=== PATIENT | male | born 1945 | race Caucasian/White ===

== ENCOUNTER → 2018-05-15 | Outpatient (CLI) | payer OTHER | LOC: BMCIMAGING 08:21 | PROVIDERS: ATTEND Orthopaedic Surgery | PROC: BQ101ZZ Fluoroscopy of Right Hip using Low Osmolar Contrast (ICD-10-PCS; principal; 2018-05-15) | DX: M25.551 Pain in right hip (principal) ==

== ENCOUNTER → 2018-11-26 | Outpatient (CLI) | payer OTHER ==
[~2018-11-26] MED LIST: IOPAMIDOL (ISOVUE 370) 100 ML BTL IV ONE; IOPAMIDOL (ISOVUE-300) 200 ML BTL ONE
== END ==
LOC: FIMAGING 10:42
PROVIDERS: ATTEND Urology
DX: N32.89 Other specified disorders of bladder (principal); N40.0 Benign prostatic hyperplasia without lower urinary tract symptoms; M89.9 Disorder of bone, unspecified
CPT/HCPCS: 74178; Q9967; 82565-PO

== ENCOUNTER 2019-01-10 10:51 | Day surgery (SDC) | payer OTHER ==
[~2019-01-10 10:51] MED LIST changes: -IOPAMIDOL (ISOVUE 370) 100 ML BTL IV ONE; -IOPAMIDOL (ISOVUE-300) 200 ML BTL ONE; +ceFAZolin 2 GM/DEXTROSE 100 ML IV ONE
[2019-01-10] MEDS ORDERED: OPIUM/BELLADONNA ALKALO SUPP PR PRN ×2 (11:08)
[2019-01-10] MEDS ORDERED: LIDOCAINE 1% 2 ML INJ ID PRN (11:10)
[2019-01-10] MEDS ORDERED: LR 1,000 ML IV ONE (11:10)
--- NOTE | 2019-01-10 11:35 | PDANEPAE ---
ANE History of Present Illness here for TURB ANE Past Medical History - Cardiovascular History Hx Hypertension: No Hx Arrhythmias: No Hx Chest Pain: No Hx Coronary Artery / Peripheral Vascular Disease: No Hx CHF / Valvular Disease: No Hx Palpitations: No - Pulmonary History Hx COPD: No Hx Asthma/Reactive Airway Disease: No Hx Recent Upper Respiratory Infection: No Hx Oxygen in Use at Home: No Hx Sleep Apnea: Yes Sleep Apnea Screening Result - Last Documented: Positive Pulmonary History Comment: BLANCA uses CPAP - Neurologic History Hx Cerebrovascular Accident: No Hx Seizures: No Hx Dementia: No - Endocrine History Hx Diabetes: No - Renal History Hx Renal Disorders: No - Liver History Hx Hepatic Disorders: No - Neurological & Psychiatric Hx Hx Neurological and Psychiatric Disorders: No - Cancer History Hx Cancer: No - Congenital Disorder History Hx Congenital Disorders: No - GI History Hx Gastrointestinal Disorders: No - Other Health History Other Health History: none - Chronic Pain History Chronic Pain: No - Surgical History Prior Surgeries: none in last 5 yrs. 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 ANE Review of Systems Review of Systems: - Exercise capacity METS (RN): 5 METS ANE Patient History - Allergies Allergies/Adverse Reactions: No Known Allergies Allergy (Verified 12/31/18 10:34) - Home Medications Home Medications: Aspirin 81mg (*) 12/31/18 [Last Taken Unknown] Cholecalciferol (Vitamin D3) 12/31/18 [Last Taken Unknown] Coq-10 12/31/18 [Last Taken Unknown] Zinc 12/31/18 [Last Taken Unknown] Zocor 12/31/18 [Last Taken Unknown] - NPO status NPO Status: no food or drink >8 hours - Anes Hx Anes Hx: no prior problems - Smoking Hx Smoking Status: Former smoker - Alcohol Use Alcohol Use: Occasionally - Family Anes Hx Family Anes Hx: none Family Hx Anesthesia Complications: none ANE Labs/Vital Signs - Vital Signs Vital Signs: reviewed preoperatively; see RN documention for details Height: 190.5 cm Weight: 99.79 kg ANE Physical Exam - Airway Neck exam: FROM Mallampati Score: Class 2 Mouth exam: normal dental/mouth exam - Pulmonary Pulmonary: no respiratory distress, clear to auscultation - Cardiovascular Cardiovascular: regular rate and rhythym, no murmur, rub, or gallop - ASA Status ASA Status: II ANE Anesthesia Plan Anesthesia Plan: general endotracheal anesthesia
--- NOTE | 2019-01-10 11:39 | PDGENHP ---
History and Physical - Chief Complaint bladder tumor - History of Present Illness 73M underwent cysto in office for BPH, found to have bladder tumor. Here for TURBT. No blood in urine. No pain or fevers or chills. History Information - Allergies/Home Medication List Allergies/Adverse Reactions: No Known Allergies Allergy (Verified 12/31/18 10:34) Home Medications: Aspirin 81mg (*) 12/31/18 [Last Taken Unknown] Cholecalciferol (Vitamin D3) 12/31/18 [Last Taken Unknown] Coq-10 12/31/18 [Last Taken Unknown] Zinc 12/31/18 [Last Taken Unknown] Zocor 12/31/18 [Last Taken Unknown] I have personally reviewed and updated: family history, medical history, social history, surgical history - Social History Smoking Status: Former smoker Alcohol Use: Occasionally Review of Systems Review of Systems: ROS: 10pt was reviewed & negative except for what was stated in HPI & below Physical Exam Physical Exam: Constitutional: no apparent distress Eyes: anicteric sclera Ears, Nose, Mouth, Throat: moist mucous membranes Cardiovascular: regular rate and rhythym Respiratory: no respiratory distress Gastrointestinal: soft, non-tender abdomen Genitourinary: no bladder fullness Skin: warm Neurologic: AAOx3 Psychiatric: interacting appropriately Assessment & Plan Assessment: Bladder tumor Plan: TURBT. Jo juares.
[2019-01-10] MEDS ORDERED: LIDOCAINE 2% JELLY 20 ML (UROJECT) ONE (11:40)
[2019-01-10] MEDS ORDERED: CEFAZOLIN 2 GM/DEXTROSE/100 ML BAG IV ONE (11:55)
[2019-01-10] MEDS ORDERED: fentaNYL 100 MCG/2 ML INJ ONE (12:05)
[2019-01-10] MEDS ORDERED: ROCURONIUM 50 MG/5 ML VIAL ONE (12:06)
[2019-01-10] MEDS ORDERED: LIDOCAINE 2% 100 MG/5 ML SYR ONE (12:06)
[2019-01-10] MEDS ORDERED: PROPOFOL 200 MG/20 ML VIAL ONE (12:06)
[2019-01-10] MEDS ORDERED: OPIUM/BELLADONNA ALKALO SUPP PR ONE (12:32)
[2019-01-10] MEDS ORDERED: ACETAMINOPHEN 500 MG TAB PO PRN (13:14)
[2019-01-10] MEDS ORDERED: ONDANSETRON 4 MG/2 ML VIAL IVP PRN (13:14)
[2019-01-10] MEDS ORDERED: fentaNYL 100 MCG/2 ML INJ IVP PRN (13:14)
[2019-01-10] MEDS ORDERED: PROMETHAZINE HCL 25 MG/ML INJ IVP PRN (13:14)
[2019-01-10] MEDS ORDERED: HYDROCODONE/APAP 5/325 TAB PO PRN (13:14)
[2019-01-10] MEDS ORDERED: NALOXONE HCL 0.4 MG/ML INJ IVP PRN (13:14)
[2019-01-10] MEDS ORDERED: oxyCODONE IR 5 MG TAB PO PRN (13:14)
--- NOTE | 2019-01-10 13:16 | POSTANESTH ---
Post Anesthetic Evaluation Cardiovascular Status: Normal, Stable, Similar to Pre-Op Cond Respiratory Status: Normal, Stable, Similar to Pre-op Cond. Level of Consciousness/Mental Status: Can Participate in Eval, Alert and Oriented Pain Control: Adequate, Prn Tx Ordered Nausea/Vomiting Control: Adequate, Prn Tx Ordered Complications Possibly Related to Anesthesia: None Noted
--- NOTE | 2019-01-10 13:46 | POSTOPPROG ---
Post Op Note Date of Operation: 01/10/19 Surgeon: Becca Wheat Anesthesiologist: Gill Anesthesia: GET(General Endotracheal) Pre-op Diagnosis: bladder tumor Post-op Diagnosis: same Indication: bladder tumor Procedure: cysto, TURBT Findings: small bladder tumor, 1.5-2cm Inf/Abcess present in the surg proc area at time of surgery?: No EBL: Minimal Complications: none, pt tolerated procedure well Specimen(s): bladder tumor, superficial and deep tumor sent separately
[2019-01-10 14:11] VITALS: BP 129/68
--- NOTE | 2019-01-11 08:19 | GOP ---
[f rep st] OPERATIVE REPORT DATE OF OPERATION: 01/10/2019 SURGEON: Becca Wheat MD ANESTHESIA: General. ANESTHESIOLOGIST: Dr. Garland. PREOPERATIVE DIAGNOSIS: Bladder tumor. POSTOPERATIVE DIAGNOSIS: Bladder tumor. PROCEDURE PERFORMED: Cystoscopy and transurethral resection of bladder tumor in saline. FINDINGS: There was a small bladder tumor, 1.5 to 2 cm on the right lateral wall, not involving the ureteral orifice. SPECIMENS: Superficial and deep tumor. ESTIMATED BLOOD LOSS: Minimal. INDICATIONS: Bladder tumor. DESCRIPTION OF PROCEDURE: He was taken back to the cystoscopy suite, placed on the cystoscopy table in a supine position. General anesthesia induced without complication. Time-out performed. Core measures satisfied including placement of a Chacorta Hugger, SCDs and administration of Ancef antibiotics. He was brought to the end of the table, placed in a dorsal lithotomy position. All pressure points padded. Genitalia draped and prepped in a standard surgical fashion with Betadine. He received paralyzing anesthesia by anesthesia. Visual obturator easily cannulated the urethral meatus and was advanced atraumatically into the bladder. Perez cystoscopy was performed and there were no other lesions for abnormalities, except the approximately 1.5 to 2 cm bladder tumor on the right lateral wall that was papillary and not involving the right ureteral orifice. I assembled the loop and started systematically taking down the superficial aspect of the tumor. Once this was complete, all superficial specimen was sent to Pathology. Then I proceeded with taking down the deeper section of the tumor to make sure to include muscle. I resected the tumor in its entirety as well as a 3mm margin around he tumor. I did not perforate the bladder at the resection site. The remaining bladder where no tumor was remained untouched. Once this was complete, the deep tumor specimens were sent off. Hemostasis was very good throughout the procedure. I did fulgurate the base of the tumor, as well as the edges. Once I felt the resection was complete , I removed that resectoscope and then looked around the bladder again with the 30 and 70 degree lens and found no other suspicious areas or abnormal areas that needed removal. Hemostasis remained excellent. At this point, I considered the procedure complete. He was awoken from anesthesia and transferred to PACU in good condition. COMPLICATIONS: None. The patient tolerated the procedure well. INDICATIONS: The patient came to my office for evaluation of obstructive uropathy and during a workup with a cystoscopy, a bladder tumor was found. He was asymptomatic from this tumor without any gross hematuria or microscopic hematuria, but has a past history of smoking cigarettes. He presents today for removal of that tumor. The rationale, risks and benefits were discussed in detail. The risks include bleeding, infection, pain, injury to the ureteral orifices, the ureter, the urethra, the bladder, bladder perforation requiring procedures for repair, incomplete resection, and need for subsequent procedures. The patient understood these risks and agreed to proceed. /[id number]/MODL MTDD
== END 2019-01-10 14:56 | disposition home or self-care (01) ==
LOC: FSGY 10:51
PROVIDERS: ATTEND Urology
PROC: 0TBB8ZX Excision of Bladder, Via Natural or Artificial Opening Endoscopic, Diagnostic (ICD-10-PCS; principal; 2019-01-10 12:15)
DX: C67.9 Malignant neoplasm of bladder, unspecified (principal); N40.1 Benign prostatic hyperplasia with lower urinary tract symptoms; N13.8 Other obstructive and reflux uropathy; G47.33 Obstructive sleep apnea (adult) (pediatric)
CPT/HCPCS: J0690; J2001; J2704; J3010

== ENCOUNTER → 2019-04-10 | Outpatient (CLI) | payer OTHER | LOC: BMCIMAGING 11:05 ==